=== PATIENT | female | born 1975 | race Caucasian/White ===

== ENCOUNTER 2016-12-18 06:35 | Emergency (ER) | payer MEDICARE, MEDICAID ==
[2016-12-18 07:23] VITALS: BP 101/80
[2016-12-18] MEDS ORDERED: Diazepam TAB(*) 5 MG PO ONE (07:31)
[2016-12-18 08:08] LABS: Hematocrit 40 % (35-47); Hemoglobin 13.4 g/dl (12.0-16.0); Mean Corpuscular HGB Conc 34 g/dl (31-36); Mean Corpuscular Hemoglobin 30 pg (27-31); Mean Corpuscular Volume 90 fL (80-97); Mean Platelet Volume 10 um3 (7.4-10.4); Red Blood Count 4.44 10^6/ul (4.0-5.4); Red Cell Distribution Width 13 % (10.5-15); White Blood Count 7.1 10^3/ul (3.5-10.8)
[2016-12-18 08:21] LABS: BUN/Creatinine Ratio 17.6 (8-20); Calcium 8.5 mg/dL (8.6-10.3); EGFR African American 122.6 (>60); EGFR Non-African American 95.4 (>60); Potassium 3.9 mmol/L (3.5-5.0)
--- NOTE | 2016-12-18 08:30 | RAD ---
HISTORY: Fall, thrombocytopenia, head laceration COMPARISONS: None TECHNIQUE: Multiple contiguous axial CT scans were obtained of the head without intravenous contrast. FINDINGS: HEMORRHAGE/INFARCT: There is no hemorrhage or acute infarct. MASSES/SHIFT: There is no mass or shift. EXTRA-AXIAL SPACES: There are no extra-axial fluid collections. SULCI AND VENTRICLES: The sulci and ventricles are normal in size and position for the patient's stated age. CEREBRUM: There are no focal parenchymal abnormalities. BRAINSTEM: There are no focal parenchymal abnormalities. CEREBELLUM: There are no focal parenchymal abnormalities. VESSELS: The vessels are grossly normal. PARANASAL SINUSES: The paranasal sinuses are clear. ORBITS: The orbits are unremarkable. BONES AND SOFT TISSUE: No bone or soft tissue abnormalities are noted. OTHER: None IMPRESSION: NO ACUTE INTRACRANIAL PATHOLOGY.
--- NOTE | 2016-12-18 08:34 | RAD ---
HISTORY: Fall, thrombocytopenia COMPARISONS: None TECHNIQUE: Multiple contiguous axial CT scans were obtained of the cervical spine without intravenous contrast, with coronal and sagittal multiplanar reformations. FINDINGS: BRAIN: The visualized brain is unremarkable CENTRAL CANAL: Evaluation of the central canal is limited on CT technique; however, there is no obvious canalicular mass or epidural hemorrhage. ALIGNMENT: There is straightening of the cervical lordosis. VERTEBRAL BODIES: The odontoid process is intact. The atlantoaxial intervals are symmetric. The vertebral bodies are normal in attenuation, without fracture. 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 MUSCULATURE: Unremarkable INTERVERTEBRAL DISCS: There is diffuse loss of intervertebral disc height. AXIAL IMAGES: C2-C3: There is no osseous neural foraminal narrowing or central canal stenosis. C3-C4: There is no osseous neural foraminal narrowing or central canal stenosis. C4-C5: There is no osseous neural foraminal narrowing or central canal stenosis. C5-C6: There is no osseous neural foraminal narrowing or central canal stenosis. C6-C7: There is no osseous neural foraminal narrowing or central canal stenosis. C7-T1: There is no osseous neural foraminal narrowing or central canal stenosis. SOFT TISSUES: The visualized soft tissues of the neck are unremarkable. The prevertebral fat stripe is preserved. OTHER: None. IMPRESSION: NO ACUTE OSSEOUS INJURY TO THE CERVICAL SPINE
--- NOTE | 2016-12-27 14:38 | ED ---
Yee Mcdonald Auryana, scribed for Sukhjinder Crews MD on 12/18/16 at 0738 . Laceration/Wound HPI - HPI Summary HPI Summary: 41 year old female presents with head laceration s/p fall this morning. Per printer slotter feeder, patient was attempting to put on shirt while walking. Patient has known unsteady gait and difficulty with putting shirts on. 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 Neonatal Intensive Care Nurse reports history of aggressive outburst toward other residents and self-harm tendencies. Patient is currently on Klonopin and Valium 10 mg for stress management at doctors appointment. Last tetanus shot was in 2008. PMHx is significant for autism, PTSD, IDD, cerebral palsy, thrombocytopenia, right humerus ORIF, and dysphagia. Her PCP is Dr. Ponce. PATIENT IS A LEVEL 5 CAVEAT DUE TO NON-VERBAL STATUS. - History of Current Complaint Stated Complaint: HEAD LAC Time Seen by Provider: 12/18/16 07:20 Hx Obtained From: Family/Neonatal Intensive Care Nurse Hx From Patient Unobtainable Due To: Other - PATIENT IS A LEVEL 5 CAVEAT DUE TO NON-VERBAL STATUS. Hx Last Menstrual Period: "In the last month." Mechanism of Injury: Other - fall while putting on shirt Onset/Duration: Sudden Onset Related Hx: Other - history of thrombocytopenia; UTD tetanus - Additional Pertinent History Primary Care Physician: Dr. Ponce Referred By: PCP - Allergy/Home Medications Allergies/Adverse Reactions: Allergies Allergy/AdvReac Type Severity Reaction Status Date / Time Lamotrigine [From Lamictal] Allergy Unknown Unknown Verified 05/09/16 13:01 Reaction Details PMH/Surg Hx/FS Hx/Imm Hx Endocrine/Hematology History: Denies: Hx Anticoagulant Therapy, Hx Diabetes, Hx Thyroid Disease Cardiovascular History: Denies: Hx Congestive Heart Failure, Hx Deep Vein Thrombosis, Hx Hypertension , Hx Myocardial Infarction, Hx Pacemaker/ICD Respiratory History: Denies: Hx Asthma, Hx Chronic Obstructive Pulmonary Disease (COPD), Hx Lung Cancer, Hx Pneumonia, Hx Pulmonary Embolism GI History: Reports: Other GI Disorders - RECTAL BLEEDING, PICA TENDANCY, HX OF DYSPHAGIA Denies: Hx Gall Bladder Disease, Hx Gastrointestinal Bleed, Hx Ulcer, Hx Urosepsis History: Denies: Hx Kidney Stones, Hx Renal Disease Musculoskeletal History: Reports: Other Musculoskeletal History Sensory History: Denies: Hx Contacts or Glasses, Hx Hearing Aid Opthamlomology History: Denies: Hx Contacts or Glasses Neurological History: Reports: Other Neuro Impairments/Disorders - AUTISM, CEREBRAL PALSY, Denies: Hx Dementia, Hx Migraine, Hx Seizures, Hx Transient Ischemic Attacks (TIA) Psychiatric History: Denies: Hx Anxiety, Hx Depression, Hx Schizophrenia, Hx Bipolar Disorder - Surgical History Surgery Procedure, Year, and Place: 2004 ORIF RIGHT DISTAL HUMERUS, [facility] Hx Anesthesia Reactions: No - Immunization History Date of Tetanus Vaccine: 2008 Immunizations Up to Date: Yes Infectious Disease History: No Infectious Disease History: Denies: Hx Hepatitis, Hx Human Immunodeficiency Virus (HIV), History Other Infectious Disease, Traveled Outside the [place] in Last 30 Days - Family History Known Family History: Positive: Unknown - She is non-verbal, [facility] patient. Neonatal Intensive Care Nurse does not have fm hx. - Social History Occupation: Unemployed Lives: [facility] Alcohol Use: None Hx Substance Use: No Substance Use Type: Reports: None Hx Tobacco Use: No Smoking Status (MU): Never Smoked Tobacco Review of Systems - ROS Summary Review of Systems Summary: PATIENT IS A LEVEL 5 CAVEAT DUE TO NON-VERBAL STATUS. Negative: Erythema Positive: Other - laceration on the posterior head All Other Systems Reviewed And Are Negative: No Physical Exam - Summary Physical Exam Summary: Constitutional: Well-developed, Well-nourished, Alert. (-) Distressed Skin: Warm, Dry. 4 cm laceration on the occipital area of the head. HENT: Normocephalic; Atraumatic Eyes: Conjunctiva normal Neck: Musculoskeletal ROM normal neck. (-) JVD, (-) Stridor, (-) Tracheal deviation. Cardio: Rhythm regular, rate normal, Heart sounds normal; Intact distal pulses; The pedal pulses are 2+ and symmetric. Radial pulses are 2+ and symmetric. (-) Murmur Pulmonary/Chest wall: Effort normal. (-) Respiratory distress, (-) Wheezes, (-) Rales Abd: Soft, (-) Tenderness, (-) Distension, (-) Guarding, (-) Rebound Musculoskeletal: (-) Edema Lymph: (-) Cervical adenopathy Neuro: Patient is non-verbal. Psych: Mood and affect Normal Triage Information Reviewed: Yes Vital Signs On Initial Exam: Initial Vitals Temp Pulse Resp BP Pulse Ox 98.6 F 80 18 129/75 98 12/18/16 06:39 12/18/16 06:39 12/18/16 06:39 12/18/16 06:39 12/18/16 06:39 Vital Signs Reviewed: Yes Completion Of Physical Exam Limited Due To: Other - PATIENT IS A LEVEL 5 CAVEAT DUE TO NON-VERBAL STATUS. - [place] Coma Scale Coma Scale Total: 15 Procedures - Laceration/Wound Repair posterior head-occipital area Location: head Description: Linear Length, Depth and Shape: 4 cm superficial laceration ; galea was intact. Irrigated w/ Saline (ccs): 100 - irrigated with 100 ml of saline Laceration/Wound Explored: clean Closure: [place] #__ - 6 Debridement: minimal Diagnostics - Vital Signs Vital Signs Temp Pulse Resp BP Pulse Ox 12/18/16 06:39 98.6 F 80 18 129/75 98 - Laboratory Result Diagrams: 12/18/16 07:53 12/18/16 07:53 Lab Statement: Any lab studies that have been ordered have been reviewed, and results considered in the medical decision making process. - CT CERVICAL CT Interpretation: No Acute Changes CT Interpretation Completed By: Radiologist BRAIN CT Interpretation: No Acute Changes CT Interpretation Completed By: Radiologist Laceration Repair Course/Dx - Course Assessment/Plan: 41 year old female presents with head laceration s/p fall this morning. Per printer slotter feeder, patient was attempting to put on shirt while walking. Patient has known unsteady gait and difficulty with putting shirts on. 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 Neonatal Intensive Care Nurse reports history of aggressive outburst toward other residents and self-harm tendencies. Patient is currently on Klonopin and Valium 10 mg for stress management at doctors appointment. Last tetanus shot was in 2008. PMHx is significant for autism, PTSD, IDD, cerebral palsy, thrombocytopenia, right humerus ORIF, and dysphagia. Her PCP is Dr. Ponce. PATIENT IS A LEVEL 5 CAVEAT DUE TO NON-VERBAL STATUS. DDx: closed head injury, skull fracture, neck fracture, concussion, and low platelets. Blood work results shows platelet count 121, and calcium 8.5 but otherwise blood work is WNL. CT brain is negative. CT cervical is negative. Head laceration (4 cm superficial laceration with galea intact) was irrigated with 100 ml of saline and 6 florian were placed. Patient will be discharged back to [facility] with instructions for staple care and removal in 10 days. Advised to follow up here at [facility] [place]. Dx: scalp laceration. - Differential Dx Differental Diagnoses: Fracture - skull Fx, neck Fx, Laceration - scalp, Other - closed head injury, concussion, and low platelets - Clinical Impression Provider Diagnoses: Scalp laceration Discharge - Discharge Plan Condition: Stable Disposition: HOME Patient Education Materials: Laceration (ED), Staple Care (ED) Referrals: Rylan Ponce MD [Primary Care Provider] - Additional Instructions: PLEASE FOLLOW UP WITH [facility] FOR STAPLE REMOVAL IN 1O DAYS. RETURN TO THE EMERGENCY DEPARTMENT FOR CHANGING OR WORSENING SYMPTOMS. The documentation as recorded by the Yee al Auryana accurately reflects the service I personally performed and the decisions made by Mars paul Jerry, MD.
== END 2016-12-18 09:45 | disposition home or self-care (01) ==
LOC: ED 06:35
DX: S01.01XA Laceration without foreign body of scalp, initial encounter (principal); W19.XXXA Unspecified fall, initial encounter; Y93.9 Activity, unspecified; Y92.89 Other specified places as the place of occurrence of the external cause
CPT/HCPCS: 12002; 36415; 70450; 72125; 80048; 85027; 99282; A9270-GY

== ENCOUNTER 2016-12-29 10:32 | Emergency (ER) | payer MEDICARE, MEDICAID ==
--- NOTE | 2016-12-29 11:39 | UC ---
HPI Wound/Suture Re-check - HPI Summary HPI Summary: here to have florian removed lead lac about 10 days ago-here with administrative support associate who report no issues with healing - History Of Current Complaint Chief Complaint: UCLaceration Stated Complaint: SUTURE REMOVAL Time Seen by Provider: 12/29/16 11:36 Hx Obtained From: Family/Manager Custom Hx Last Menstrual Period: 12/15/16 Onset/Duration: Sudden Onset, Lasting Days - 10 Severity: Mild - Allergies/Home Medications Allergies/Adverse Reactions: Allergies Allergy/AdvReac Type Severity Reaction Status Date / Time Lamotrigine [From Lamictal] Allergy Unknown Unknown Verified 12/29/16 11:36 Reaction Details Home Medications: Home Medications Olanzapine [Zyprexa Zydis 15 MG] 1 tab PO BEDTIME 12/29/16 [History Confirmed ] PMH/Surg Hx/FS Hx/Imm Hx Previously Healthy: No - MR DD With chronic seaquela Neurological History: Seizures Psychological History: Anxiety Other History Of: Negative For: HIV, Hepatitis B, Hepatitis C, Anticoagulant Therapy - Surgical History Surgical History: Yes Surgery Procedure, Year, and Place: 2004 ORIF RIGHT DISTAL HUMERUS, [facility] - Family History Known Family History: Positive: Unknown - She is non-verbal, [facility] patient. Manager Custom does not have fm hx. - Social History Occupation: Disabled Lives: With Family Alcohol Use: None Substance Use Type: None Smoking Status (MU): Never Smoked Tobacco Review of Systems Constitutional: Negative Skin: Other - well healed wound top of head Eyes: Negative ENT: Negative Respiratory: Negative Cardiovascular: Negative Gastrointestinal: Negative Genitourinary: Negative Motor: Negative Neurovascular: Negative Musculoskeletal: Negative Neurological: Negative Psychological: Negative All Other Systems Reviewed And Are Negative: Yes Physical Exam Triage Information Reviewed: Yes Completion Of Physical Exam Limited Due To: Altered Mental Status - MR/DD Appearance: Well-Appearing, No Pain Distress, Well-Nourished Vital Signs Reviewed: Yes Eye Exam: Normal Eyes: Positive: Conjunctiva Clear ENT Exam: Normal ENT: Positive: Normal ENT inspection, Hearing grossly normal, Pharynx normal. Negative: Nasal congestion, Nasal drainage, Trismus, Muffled/hoarse voice Dental Exam: Normal Neck exam: Normal Neck: Positive: Supple, Nontender Respiratory Exam: Normal Respiratory: Positive: Chest non-tender, No respiratory distress, No accessory muscle use Cardiovascular Exam: Normal Cardiovascular: Positive: RRR, Pulses Normal, Brisk Capillary Refill Musculoskeletal Exam: Normal Musculoskeletal: Positive: Strength Intact, ROM Intact, No Edema Neurological Exam: Normal Neurological: Positive: Alert, Muscle Tone Normal Psychological Exam: Normal Psychological: Positive: Normal Response To Family Skin Exam: Normal Skin: Positive: Other - healed, well approximated wound on head Re-Evaluation - Re-Evaluation First Eval Change: Improved - florian removed with ease--patient tolerated well Course/Dx - Course Course Of Treatment: staple removal, may return to usual hygiene - Differential Dx - Laceration/Wound Differential Diagnoses: Healing Wound, Hematoma, Suture Removal Provider Diagnoses: Staple removal healed wound Discharge - Discharge Plan Condition: Stable Disposition: HOME Patient Education Materials: Stitches Removal (ED) Referrals: Rylan Ponce MD [Primary Care Provider] - If Needed
[2016-12-29 11:48] VITALS: BP 102/48
== END 2016-12-29 11:52 | disposition home or self-care (01) ==
LOC: UCEAST 10:32
DX: S01.91XD Laceration without foreign body of unspecified part of head, subsequent encounter (principal); X58.XXXD Exposure to other specified factors, subsequent encounter; Y92.9 Unspecified place or not applicable

== ENCOUNTER 2017-06-24 11:03 | Emergency (ER) | payer MEDICARE, MEDICAID ==
[2017-06-24 11:34] VITALS: BP 00/00
[2017-06-24] MEDS ORDERED: Ibuprofen TAB* 600 MG PO ONE (12:15)
[2017-06-24] MEDS ORDERED: Lidocaine 4% TOPICAL* 50 ML TOP.SOLN TOPICAL ONE (12:18)
--- NOTE | 2017-06-24 12:19 | UC ---
Ann Mcdonald Nilda, scribed for Ilana Chicas MD on 06/24/17 at 1206 . Laceration HPI - HPI Summary HPI Summary: LVL 5 CAVEAT: Hx from pt is limited due to PMHx Cerebral Palsy and nonverbal status. Hx obtained by caregiver. This patient is a 41 year old F [place] [facility] [place] caregiver with a chief complaint of laceration on left thumb s/p cutting finger on a door jamb at 1030 this morning. Caregiver states there was mild bleeding, which has since resolved. The patient rates the pain 0/10 in severity. Symptoms aggravated by palpation. Caregiver denies other injury and blood thinners. Tetanus UTD. Pt is not immunocompromised. Patient's medication reviewed this visit. - History Of Current Complaint Chief Complaint: UCLaceration Stated Complaint: THUMB LAS Time Seen by Provider: 06/24/17 11:59 Hx Obtained From: Family/Costumer Assistant Hx From Patient Unobtainable Due To: Other - profound MR, nonverbal Hx Last Menstrual Period: 12/15/16 Laceration Location: Finger - left thumb Mechanism Of Injury: Sharp Trauma Onset/Duration: Sudden Onset, Lasting Hours, Still Present Pain Intensity: 0 Pain Scale Used: 0-10 Numeric Aggravating Factors: Other: - palpation - Allergies/Home Medications Allergies/Adverse Reactions: Allergies Allergy/AdvReac Type Severity Reaction Status Date / Time MS Lamotrigine Allergy Unknown Unknown Verified 12/29/16 11:36 [From Lamictal] Reaction Details PMH/Surg Hx/FS Hx/Imm Hx Previously Healthy: No Cardiovascular History: Other Other Cardiovascular History: Thrombocytopenia Neurological History: Other Other Neurological History: Autism, Cerebral Palsy, Profound IDD Psychological History: Post Traumatic Stress Disorder Other History Of: Negative For: HIV, Hepatitis B, Hepatitis C, Anticoagulant Therapy - Surgical History Surgical History: Yes Surgery Procedure, Year, and Place: 2004 ORIF RIGHT DISTAL HUMERUS, [facility] - Family History Known Family History: Positive: Unknown - She is non-verbal, long-term patient. Costumer Assistant does not have fm hx. - Social History Occupation: Disabled Lives: [employer] Alcohol Use: None Substance Use Type: None Smoking Status (MU): Never Smoked Tobacco Review of Systems Skin: Other - laceration on left thumb Neurological: Other - pt has cerebral palsy and is nonverbal All Other Systems Reviewed And Are Negative: No - Comments Additional Review of Systems Comments: LVL 5 CAVEAT: Hx is limited due to PMHx Cerebral Palsy and nonverbal status. Hx obtained by caregiver. Physical Exam Triage Information Reviewed: Yes Completion Of Physical Exam Limited Due To: Other - Pt non verbal Appearance: Well-Appearing, No Pain Distress, Well-Nourished Vital Signs: Initial Vital Signs Temp 98.8 F 06/24/17 11:30 Pulse 77 06/24/17 11:30 Resp 16 06/24/17 11:30 BP 0006/24/17 11:30 Pulse Ox 99 06/24/17 11:30 Vital Signs Reviewed: Yes ENT: Positive: Hearing grossly normal Neck: Positive: Supple, Nontender, No Lymphadenopathy Respiratory: Positive: No respiratory distress, No accessory muscle use Cardiovascular: Positive: Other: - 2+ radial, ulnar no active bleeding Musculoskeletal: Positive: Other: - Pt actively flexes and extends thumb Skin: Positive: Other - pt with skin flap avulsion left thumb along lateral aspect mid prox phaylnx no active bleeding Laceration Repair - Laceration Repair Left Thumb Description: Linear - area cleansed with water/lidocaine slurry - cleansed wound Pt tolerate well superficial flap laid over wound and covered with skin adhesive Pt tolerate well alloiwed to dry and covered with bandaid and coban to prevent her from picking Closure Material: Skin Adhesive Laceration Course/Dx - Course/Dx Course Of Treatment: Pt with left thumb skin avulsion fracture. wound cleansed and closed with glue. bandaged. pt tolerate well. d/w staff member wound care. s/s infection - Differential Dx - Laceration/Wound Provider Diagnoses: skin avulsion. skin abraison Discharge - Discharge Plan Condition: Stable Disposition: HOME Patient Education Materials: Skin Avulsion (ED), Abrasion (ED) Referrals: Rylan Ponce MD [Primary Care Provider] - Additional Instructions: - Keep area clean and dry - okay to cover with a thin layer of antibiotic and a bandage - The provider that treated Antoinette today glued the thin skin flap in place - this may lift with time. This is okay. Keep wound cover to protect it - okay to give ibuprofen (Advil, Motrin) or tylenol for pain - Call your doctor to schedule a follow-up appointment as needed. Call your doctor or return with questions or concerns The documentation as recorded by the scribAnn sarah Nilda accurately reflects the service I personally performed and the decisions made by , Ilana Chicas MD.
[2017-06-24] MEDS ORDERED: Lidocaine 2% VISCOUS* 15 ML UDC PO ONE (12:23)
== END 2017-06-24 12:50 | disposition home or self-care (01) ==
LOC: UCEAST 11:03
DX: S61.012A Laceration without foreign body of left thumb without damage to nail, initial encounter (principal); S60.312A Abrasion of left thumb, initial encounter; D69.6 Thrombocytopenia, unspecified; W22.8XXA Striking against or struck by other objects, initial encounter; Y92.9 Unspecified place or not applicable
CPT/HCPCS: 99212; A9270-GY; G0463

== ENCOUNTER 2018-08-05 09:43 | Emergency (ER) | payer MEDICARE, MEDICAID ==
[2018-08-05 09:55] VITALS: BP 157/64
--- NOTE | 2018-08-05 10:49 | UC ---
Respiratory Complaint HPI - HPI Summary HPI Summary: 42-YEAR-OLD female with profound mental disabilities is brought in by her caregiver from the [facility]. The patient has had a recent URI including nasal discharge. She has increasing lethargy and cough. Her vital signs are stable. She is on multiple medications and has no allergies to antibiotics. Nurse's note: persistent cough x 2 days not improving colored nasal discharge - History of Current Complaint Chief Complaint: UCRespiratory Stated Complaint: COUGH RESP ISSUE Time Seen by Provider: 08/05/18 10:46 Hx Last Menstrual Period: 12/15/16 Pain Intensity: 0 - Allergies/Home Medications Allergies/Adverse Reactions: Allergies Allergy/AdvReac Type Severity Reaction Status Date / Time lamotrigine [From Lamictal] Allergy unk Verified 08/05/18 10:15 Home Medications: Home Medications Xanthan Gum [Simplythick] 12 gm PO AC 08/05/18 [History Confirmed 08/05/18] PMH/Surg Hx/FS Hx/Imm Hx - Additional Past Medical History Additional PMH: PMH: Profound IDD; Autism; PTSD; Cerebral Palsy, PICA Tendencies; Thrombocytompenia; Compound Fx Right humerous; Dysphagia. Previously Healthy: No Other History Of: Negative For: HIV, Hepatitis B, Hepatitis C, Anticoagulant Therapy - Surgical History Surgical History: Yes Surgery Procedure, Year, and Place: 2004 ORIF RIGHT DISTAL HUMERUS, [facility] - Family History Known Family History: Positive: Unknown - She is non-verbal, custodial patient. Angle Shearer does not have fm hx. - Social History [facility]: [facility] Alcohol Use: None Substance Use Type: None Smoking Status (MU): Never Smoked Tobacco Review of Systems All Other Systems Reviewed And Are Negative: Yes Constitutional: Negative: Fever ENT: Positive: Sinus Congestion - green discharge Respiratory: Positive: Cough Cardiovascular: Positive: Negative Gastrointestinal: Positive: Negative Genitourinary: Positive: Negative Is Patient Immunocompromised?: No Physical Exam - Summary Physical Exam Summary: Appearance: The patient is slumped over and appears to be sleeping. When she awakens, she screams. There are intermittent coughs. There is green mucus coming from her nose. Eyes: Conjunctiva are clear. Pupils are equal and reactive to light and accommodation. Extra ocular muscle movement is intact. ENT: The hearing is grossly normal, the pharynx is normal, and the TMs are normal. There is no muffled or hoarse voice. No stridor. Neck: The neck is supple and there is no lymphadenopathy. Respiratory: The chest is nontender to palpation and without crepitus. The lungs are clear, there are normal breath sounds, and there is no respiratory distress. No wheezes, rales or rhonchi. Cardiovascular: Heart sounds reveal a regular rate and rhythm. There are no clicks, rubs or murmurs. There are no carotid bruits or thrills. Circulation is grossly intact. Abdomen: The abdomen is soft and nontender. There is no organomegaly. Bowel sounds are present and within normal limits. No point tenderness at McBurneys point. Musculoskeletal: Strength is intact. The patient moves all extremities. Neurological: The patient is alert when awakened. Motor and sensory are examination grossly intact. Speech is normal. Psychological: autistic. Skin: Negative for rashes. Triage Information Reviewed: Yes Vital Signs: Initial Vital Signs Temp 98.4 F 08/05/18 09:48 Pulse 71 08/05/18 09:48 Resp 20 08/05/18 09:48 BP 157/64 08/05/18 09:48 Pulse Ox 100 08/05/18 09:48 Vital Signs Reviewed: Yes Respiratory Course/Dx - Course Course Of Treatment: 42-YEAR-OLD female with profound mental disabilities is brought in by her caregiver from the [facility]. The patient has had a recent URI including nasal discharge. She has increasing lethargy and cough. Her vital signs are stable. She is on multiple medications and has no allergies to antibiotics. Systolic HTN noted. My physical examination shows a severely autistic patient with green nasal discharge. She is sitting bent over in a chair. When awakened, she appears alert. Her lung examination does not suggest pneumonia. She coughs intermittently. Her vital signs are stable. She has slight systolic hypertension. My diagnosis is possible sinusitis and bronchitis. I have given her Keflex, 250 mg 3 times a day for 7 days. Her caregivers will follow-up if there is any increased temperature, pain, shortness of breath or change in her baseline condition. - Differential Dx/Diagnosis Differential Diagnosis/HQI/PQRI: Aspiration, Bronchitis, Lower Resp Infection, Pulmonary Embolism Provider Diagnosis: Sinusitis, Bronchitis Discharge - Sign-Out/Discharge Documenting (check all that apply): Patient Departure All imaging exams completed and their final reports reviewed: No Studies - Discharge Plan Condition: Stable Disposition: HOME Prescriptions: Cephalexin CAP* [Keflex CAP*] 250 mg PO QID #21 cap MDD 3 Patient Education Materials: Sinusitis (ED), Acute Bronchitis (ED) Referrals: Rylan Ponce MD [Primary Care Provider] - Additional Instructions: WE DISCUSSED: PLEASE SEEK CARE AT THE EMERGENCY DEPARTMENT IF SYMPTOMS WORSEN OR IF NEW SYMPTOMS DEVELOP. FOLLOW UP WITH YOUR PRIMARY CARE PHYSICIAN IF CONDITION CONTINUES BEYOND 3 DAYS WITHOUT IMPROVEMENT. We are open from 7 a.m. to 10 p.m. Call us with any questions or concerns. YOUR DIAGNOSIS IS: Sinusitis; bronchitis YOUR PRESCRIPTION RECOMMENDATION IS: Keflex 250 mg, one pill 3 times a day for 7 days. OTHER INSTRUCTIONS: Warm fluids, steam, hot showers on the face and on the chest and back. Try to clear the mucus. Call or recheck with us at any time for increased shortness of breath, cough, or temperature. Hypertension Discharge Instructions: Your blood pressure reading today was 157/54, indicating HYPERTENSION. Follow- up with your primary care provider within 4 weeks for blood pressure check and appropriate recommendations and treatment, as needed. - Billing Disposition and Condition Condition: STABLE Disposition: Home
== END 2018-08-05 11:08 | disposition home or self-care (01) ==
LOC: UCEAST 09:43
DX: J40 Bronchitis, not specified as acute or chronic (principal); J32.9 Chronic sinusitis, unspecified; F84.0 Autistic disorder; Z88.8 Allergy status to other drugs, medicaments and biological substances
CPT/HCPCS: 99212; G0463